=== PATIENT | female | born 1955 | race Caucasian/White ===

== ENCOUNTER 2025-04-24 15:29 | Inpatient (IN) | payer OTHER, MEDICAID ==
[~2025-04-24 15:29] MED LIST: Iopamidol 370 76% 100 ML VIAL ONE
[2025-04-24] MEDS ORDERED: Acetaminophen 500 MG TAB ONE (16:28)
[2025-04-24 16:34] LABS: #Basophils 0.08 10x3/uL (0.0-0.2); #Eosinophils 0.45 10x3/uL (0.0-0.7); #Monocytes 0.70 10x3/uL (0.11-0.59); #Neutrophils 5.26 10x3/uL (1.40-6.50); %Basophils 1.0 % (0.0-1.0); %Eosinophils 5.3 % (0.0-10.0); %Lymphocytes 22.0 % (21.0-51.0); %Monocytes 8.3 % (0.0-10.0); %Neutrophils 62.4 % (42.0-75.0); Hematocrit 35.2 % (36.0-47.0); Hemoglobin 12.7 g/dL (12.0-16.0); Mean Corpuscular Hemoglobin 35.1 pg (27.0-31.0); Mean Corpuscular Volume 97.2 fL (78.0-98.0); Platelet Count 344 10x3/uL (130-400); Red Blood Cell (RBC) Count 3.62 mill/uL (4.20-5.40); White Blood Cell (WBC) Count 8.42 10x3/uL (4.8-10.8)
[2025-04-24 16:58] LABS: ALT (SGPT) 29 U/L (Less than 34); AST (SGOT) 56 U/L (11-34); Albumin 4.3 g/dL (3.1-4.5); Alkaline Phosphatase 51 U/L (40-110); Anion Gap 18 mmol/L (10-20); BUN (Urea Nitrogen) 11 mg/dL (9.8-20.1); Bilirubin, Total 0.6 mg/dL (0.3-1.2); Calc. Creatinine Clearance 0 mL/min (70-130); Calcium 9.8 mg/dL (7.8-10.44); Carbon Dioxide 24 mmol/L (23-31); Chloride 98 mmol/L (98-107); Globulin 3.0 g/dL (2.4-3.5); Glucose 79 mg/dL (80-115); Lipase 24 U/L (8-78); Potassium 4.0 mmol/L (3.5-5.1); Sodium 136 mmol/L (136-145)
[2025-04-24 17:01] LABS: Troponin I 0.018 ng/mL (< 0.028)
[2025-04-24 17:22] LABS: Bacteria/HPF None Seen HPF (None Seen); CAUTI Indications for Culture Pelvic or flank pain; Glucose, Urine (Dipstick) 70 mg/dL (Negative); Leukocyte Negative Leu/uL (Negative); Protein, Urine (Dipstick) Negative (Neg-Trace); RBC/HPF None Seen HPF (0-3); Specific Gravity, Urine 1.008 (1.002-1.036); WBC/HPF 0-3 HPF (0-3)
[2025-04-24 17:26] LABS: Urine Culture Reflex No No
[2025-04-24 19:57] LABS: Troponin I Less than 0.010 ng/mL (< 0.028)
[2025-04-24] MEDS ORDERED: Mag-Al 1200 mg/1200 mg/30 ML UDCUP ONE (20:00)
[2025-04-24] MEDS ORDERED: Famotidine/PF 20 mg/2ml Vial ONE (20:00)
[2025-04-24 20:50] LABS: Troponin I Less than 0.010 ng/mL (< 0.028)
[2025-04-24] MEDS ORDERED: Dextrose 50% Abboject 50 ML SYRINGE SLOW IVP PRN (21:58)
[2025-04-24] MEDS ORDERED: Glucagon 1 MG/ML KIT IM PRN (21:58)
[2025-04-24] MEDS ORDERED: Nitroglycerin 0.4 MG TAB (25 Tab Bottle) SL PRN (21:59)
[2025-04-24] MEDS ORDERED: Ondansetron PF 4 MG/2 ML Vial IVP PRN (21:59)
[2025-04-24 22:33] VITALS: BMI 23.0
[2025-04-25 01:01] LABS: Troponin I 0.010 ng/mL (< 0.028)
[2025-04-25 05:00] LABS: #Basophils 0.08 10x3/uL (0.0-0.2); #Eosinophils 0.65 10x3/uL (0.0-0.7); #Monocytes 0.72 10x3/uL (0.11-0.59); #Neutrophils 3.83 10x3/uL (1.40-6.50); %Basophils 1.1 % (0.0-1.0); %Eosinophils 8.9 % (0.0-10.0); %Lymphocytes 27.4 % (21.0-51.0); %Monocytes 9.8 % (0.0-10.0); %Neutrophils 52.1 % (42.0-75.0); Hematocrit 33.2 % (36.0-47.0); Hemoglobin 11.7 g/dL (12.0-16.0); Mean Corpuscular Hemoglobin 34.7 pg (27.0-31.0); Mean Corpuscular Volume 98.5 fL (78.0-98.0); Platelet Count 298 10x3/uL (130-400); Red Blood Cell (RBC) Count 3.37 mill/uL (4.20-5.40); White Blood Cell (WBC) Count 7.34 10x3/uL (4.8-10.8)
[2025-04-25 05:47] LABS: Anion Gap 13 mmol/L (10-20); BUN (Urea Nitrogen) 12 mg/dL (9.8-20.1); Calc. Creatinine Clearance 51 mL/min (70-130); Calcium 8.9 mg/dL (7.8-10.44); Carbon Dioxide 27 mmol/L (23-31); Chloride 101 mmol/L (98-107); Glucose 83 mg/dL (80-115); Potassium 3.8 mmol/L (3.5-5.1); Sodium 137 mmol/L (136-145)
[2025-04-25] MEDS ORDERED: Albuterol 200 PUFF (6.7GM INHALER) INH PRN (05:59)
[2025-04-25] MEDS: Enoxaparin 40 MG (0.4 mL) SYRINGE SC SCH (09:39)
[2025-04-25] MEDS: Sertraline 25 MG TAB PO SCH (09:39)
[2025-04-25] MEDS: Aspirin 81 mg Enteric Coated Tablet PO SCH (09:40)
[2025-04-25] MEDS: Pantoprazole 40 MG DR.TAB PO SCH (09:40)
[2025-04-25] MEDS: Spironolactone 25 MG TAB PO SCH (09:40)
[2025-04-25] MEDS: Gabapentin 300 MG CAP PO SCH (09:40)
[2025-04-25] MEDS: Torsemide 20 MG TAB PO SCH (09:41)
[2025-04-25] MEDS: Losartan 25 MG TAB PO SCH (09:41)
[2025-04-25] MEDS: Mometasone 100 MCG/Formoterol 5 MCG 120 PUFF INHALER INH SCH (11:18)
[2025-04-25] MEDS: Acetaminophen 325 MG TAB PO PRN (15:29)
[2025-04-25] MEDS: Ketorolac Tromethamine 30 MG (1 mL) VIAL IVP SCH (22:02)
[2025-04-26 05:33] LABS: #Basophils 0.07 10x3/uL (0.0-0.2); #Eosinophils 0.81 10x3/uL (0.0-0.7); #Monocytes 0.82 10x3/uL (0.11-0.59); #Neutrophils 3.51 10x3/uL (1.40-6.50); %Basophils 1.0 % (0.0-1.0); %Eosinophils 11.0 % (0.0-10.0); %Lymphocytes 28.5 % (21.0-51.0); %Monocytes 11.2 % (0.0-10.0); %Neutrophils 47.8 % (42.0-75.0); Hematocrit 34.5 % (36.0-47.0); Hemoglobin 11.9 g/dL (12.0-16.0); Mean Corpuscular Hemoglobin 33.9 pg (27.0-31.0); Mean Corpuscular Volume 98.3 fL (78.0-98.0); Platelet Count 294 10x3/uL (130-400); Red Blood Cell (RBC) Count 3.51 mill/uL (4.20-5.40); White Blood Cell (WBC) Count 7.34 10x3/uL (4.8-10.8)
[2025-04-26 05:55] LABS: Anion Gap 12 mmol/L (10-20); BUN (Urea Nitrogen) 14 mg/dL (9.8-20.1); Calc. Creatinine Clearance 47 mL/min (70-130); Calcium 8.9 mg/dL (7.8-10.44); Carbon Dioxide 28 mmol/L (23-31); Chloride 98 mmol/L (98-107); Glucose 97 mg/dL (80-115); Potassium 4.3 mmol/L (3.5-5.1); Sodium 134 mmol/L (136-145)
[2025-04-26] MEDS ORDERED: CATH FS SCH (18:30)
[2025-04-27] MEDS ORDERED: Mirtazapine 15 MG TAB PO SCH (21:00)
[2025-04-28] MEDS ORDERED: Lidocaine 1% (PF) 30 ML VIAL ONE (07:29)
[2025-04-28] MEDS ORDERED: Heparin 10,000 UNITS/ 10 ML VIAL ONE (07:30)
[2025-04-28] MEDS ORDERED: Iopamidol 370 76% 100 ML VIAL ONE (10:59)
[2025-04-28 11:43] VITALS: BP 125/75; TEMP 98.4
== END 2025-04-28 15:29 | disposition home or self-care (01) | DRG 287 ==
LOC: ERS 15:29 → OBS 20:15 → OBSVTOIN 04-25 17:44
PROVIDERS: ADMIT Internal Medicine; ATTEND Internal Medicine
PROC: B2111ZZ Fluoroscopy of Multiple Coronary Arteries using Low Osmolar Contrast (ICD-10-PCS; principal; 2025-04-28)
PROC: 4A023N7 Measurement of Cardiac Sampling and Pressure, Left Heart, Percutaneous Approach (ICD-10-PCS; 2025-04-28)
PROC: B2151ZZ Fluoroscopy of Left Heart using Low Osmolar Contrast (ICD-10-PCS; 2025-04-28)
DX: I48.0 Paroxysmal atrial fibrillation (principal); I13.0 Hypertensive heart and chronic kidney disease with heart failure and stage 1 through stage 4 chronic kidney disease, or unspecified chronic kidney disease; I50.22 Chronic systolic (congestive) heart failure; I25.10 Atherosclerotic heart disease of native coronary artery without angina pectoris; J44.9 Chronic obstructive pulmonary disease, unspecified; E11.22 Type 2 diabetes mellitus with diabetic chronic kidney disease; E78.5 Hyperlipidemia, unspecified; K21.9 Gastro-esophageal reflux disease without esophagitis; F17.210 Nicotine dependence, cigarettes, uncomplicated; I44.7 Left bundle-branch block, unspecified; E03.9 Hypothyroidism, unspecified; E66.9 Obesity, unspecified; G47.33 Obstructive sleep apnea (adult) (pediatric); K58.9 Irritable bowel syndrome, unspecified; Z95.0 Presence of cardiac pacemaker; Z79.899 Other long term (current) drug therapy; Z79.01 Long term (current) use of anticoagulants; Z98.890 Other specified postprocedural states; Z98.51 Tubal ligation status; Z90.49 Acquired absence of other specified parts of digestive tract; Z71.6 Tobacco abuse counseling; Z68.23 Body mass index [BMI] 23.0-23.9, adult
CPT/HCPCS: 36415; 36416; 71045; 71275; 74177; 78452; 80048; 80053; 81001; 83690; 83880; 84443; 84484; 85025; 85379; 93005; 93010; 93017; 93306; 93459; 96372; 96374; 96375; 96376; 99152; 99153; A9502; C1725; C1769; G0378; J1308; J1644; J1650; J1885; J2250; J2270; J2785; Q9967